=== PATIENT | male | born 1955 | race Caucasian/White ===

== ENCOUNTER 2018-02-18 23:12 | Emergency (ER) | payer SELFPAY ==
[~2018-02-18] VITALS: Ht 167.6 cm; Wt 75.7 kg
[2018-02-18 23:12] VITALS: BP_SYST 157
[2018-02-19] MEDS ORDERED: HYDROcodone/ACETAMIN 7.5-325 MG TAB PO ONE (02:45)
[2018-02-19 03:30] VITALS: BP_SYST 138
== END 2018-02-19 03:30 | disposition home or self-care (01) ==
LOC: SED 23:12
DX: S16.1XXA Strain of muscle, fascia and tendon at neck level, initial encounter (principal); S20.212A Contusion of left front wall of thorax, initial encounter; W22.8XXA Striking against or struck by other objects, initial encounter; Y93.89 Activity, other specified; Y92.89 Other specified places as the place of occurrence of the external cause; Y99.8 Other external cause status
CPT/HCPCS: 71046-TC; 72125-TC; 99284